=== PATIENT | female | born 1935 | race Caucasian/White ===

== ENCOUNTER 2017-02-07 19:38 | Emergency (ER) | payer OTHER, MEDICARE ==
[2017-02-07 19:56] VITALS: TEMP 98.1
--- NOTE | 2017-02-07 20:27 | EDPHY ---
H & P Time Seen by Provider: 02/07/17 20:13 HPI/ROS: CHIEF COMPLAINT: Right knee pain HISTORY OF PRESENT ILLNESS: Patient is a 81-year-old female who presents to the emergency department with right knee pain. Patient states that she has bilateral knee replacements and chronic knee pain. She fluid from [facility] this morning. She states that she did not get up once while on the airplane. She fell asleep the sitting position for the entire trip. When she got up she had difficulty walking to right knee pain. She states her right knee feels like it did prior to her knee replacement. She was unable to ambulate off the airplane required a wheelchair. Her symptoms have not improved over the course of the day. She continues to complain of severe right knee pain. Feels internal. It is worse with movement and standing. She has no lower extremity swelling. No discoloration. No numbness or tingling. No recent fall or trauma. The patient denies any other symptoms. She has no chest pain or shortness of breath. No abdominal pain. No nausea or vomiting. REVIEW OF SYSTEMS: My complete review of systems is negative except as mentioned in the HPI. Past Medical/Surgical History: Includes diabetes, high cholesterol, hypertension Past surgical history: Includes bilateral knee placement Social history: The patient is from [place]. She does not smoke. Smoking Status: Never smoked Physical Exam: 36.7, 137/85, 91, 20, 91% on room air GENERAL: Well-appearing, in no acute distress, alert. HEENT: Eyes normal to inspection, normal pharynx, no signs of dehydration. NECK: [No thyromegaly, no lymphadenopathy, supple. RESPIRATORY: Clear to auscultation bilaterally, no rales, rhonchi or wheezing. CVS: Regular rate and rhythm, no rubs, murmurs, or gallops. ABDOMEN: Soft, nontender, nondistended, no organomegaly. BACK: Normal to inspection, no CVA tenderness. SKIN: Normal color, no rash, warm, dry. No pallor. EXTREMITIES: No pedal edema, no calf tenderness, no Homans sign or cords, no joint swelling. Patient's right knee appears normal. There is no tenderness to palpation. She has full range of motion with no discomfort. Neurovascular intact distally NEURO/PSYCH: Alert and oriented x3, normal mood and affect, normal motor sensory exam. No obvious cranial nerve deficit. Constitutional: Initial Vital Signs Temperature (C) 36.7 C 02/07/17 19:53 Heart Rate 91 02/07/17 19:53 Respiratory Rate 20 02/07/17 19:53 Blood Pressure 137/85 H 02/07/17 19:53 O2 Sat (%) 91 L 02/07/17 19:53 O2 Delivery Mode Room Air Allergies/Adverse Reactions: oxycodone Allergy (Verified 02/07/17 19:48) Penicillins Allergy (Verified 02/07/17 19:48) Home Medications: Medication Instructions Recorded Crestor 02/07/17 Diltiazem 02/07/17 Diovan 02/07/17 Humalog 02/07/17 Lantus Solostar 02/07/17 Metformin 1000 mg 02/07/17 Sertraline HCl 02/07/17 Medical Decision Making - Diagnostics Imaging Results: Imaging Impressions Extremity Venous Study 02/07/17 20:23 Impression: No sonographic evidence of deep vein thrombosis in the right lower extremity. Dr. Lewis discussed these findings by telephone with SUSHMA WEAVER on 2017 at 21:21 hours. Knee X-Ray 02/07/17 20:23 Impression: 1. No acute osseous abnormalities. 2. Patient status post right total knee arthroplasty with anatomic alignment. 3. Extensor mechanism enthesopathy. ED Course/Re-evaluation: In the emergency department I discussed possible etiologies with the patient and family. I answered all her questions. The patient reiterates that her pain is isolated to right knee. I ordered an x-ray of her right knee and an ultrasound of her right lower extremity. Ultrasound: No clot or other abnormality noted. Please refer the dictated report by the radiologist. Right knee x-ray in please refer the dictated report. No acute disease noted. I discussed the results with the patient. I answered all her questions. She requested to leave. This was given. The patient feels comfortable being discharged home. She was given warnings. She will return with worsening symptoms. Differential Diagnosis: My differential includes but is not limited to arthritis, sprain, strain, neuropraxis, DVT, arterial occlusion Departure - Departure Disposition: Home, Routine, Self-Care Clinical Impression: Knee pain, acute Qualifiers: Laterality: right Qualified Code(s): M25.561 - Pain in right knee Condition: Good Instructions: Knee Pain (ED) Additional Instructions: Your ultrasound and x-ray showed no acute disease. Return with increasing knee pain, redness, fever, chest pain, short or any other concerns. Referrals: [facility] [Other] - 5-7 days, call for appt.
[2017-02-07] MEDS ORDERED: NAPROXEN SODIUM 220 MG TAB PO ONE (21:35)
[2017-02-07 21:45] VITALS: BP 142/87; PULSE 88; RESP 16; O2SAT 93
== END 2017-02-07 21:40 | disposition home or self-care (01) ==
DX: M25.561 Pain in right knee (principal); I10 Essential (primary) hypertension; E11.9 Type 2 diabetes mellitus without complications; Z79.84 Long term (current) use of oral hypoglycemic drugs